=== PATIENT | male | born 1990 | race Caucasian/White ===

== ENCOUNTER 2018-12-24 20:57 | Emergency (ER) | payer OTHER ==
[~2018-12-24] VITALS: Ht 180.3 cm; Wt 76.5 kg
[2018-12-24 21:00] VITALS: Ht 180.3 cm; Wt 76.5 kg
[2018-12-24] MEDS ORDERED: KETOROLAC 30 MG INJ IM STA (22:06)
--- NOTE | 2018-12-24 22:18 | ERD ---
ER Documentation Chief Complaint Chief Complaint R ankle twisting 5 days ago HPI 28-year-old male no significant past medical history presents to the emergency department complaining of right ankle swelling and pain which is worse with walking which began 5 days ago. He states he had his right ankle crossed underneath his buttock for extended period of time which may have caused symptoms. He denies any twisting of the ankle or falls or other trauma. He used ice at home with some relief. Pain is mild at rest but worsens with walking. He took no medication for relief of symptoms. He denies any shortness of breath, fevers, chills, or other symptoms at this time. ROS All systems reviewed and are negative except as per history of present illness. Medications Home Meds Active Scripts Naproxen* (Naprosyn*) 500 Mg Tablet, 500 MG PO BID PRN for PAIN AND/OR INFLAMMATION, #30 TAB Prov:MELANIE MATHIAS PA-C 12/24/18 Doxycycline Hyclate* (Doxycycline Hyclate*) 100 Mg Tablet.dr, 100 MG PO BID for 10 Days, TAB Prov:MELANIE MATHIAS PA-C 12/24/18 Allergies Allergies: Coded Allergies: No Known Allergy (Unverified , 12/24/18) PMhx/Soc Medical and Surgical Hx: pt denies Medical Hx, pt denies Surgical Hx Hx Alcohol Use: No Hx Substance Use: No Hx Tobacco Use: No Smoking Status: Never smoker FmHx Family History: No diabetes Physical Exam Vitals Vital Signs Date Temp Pulse Resp B/P (MAP) Pulse Ox O2 O2 Flow FiO2 Time Delivery Rate 12/24/18 98.8 88 20 137/89 99 Room Air 23:27 (105) 12/24/18 97.9 71 20 151/82 96 21:00 (105) Physical Exam Const: No acute distress Head: Atraumatic Eyes: Normal Conjunctiva ENT: Normal External Ears, Nose and Mouth. Neck: Full range of motion. No meningismus. Resp: Clear to auscultation bilaterally Cardio: Regular rate and rhythm, no murmurs Skin: No petechiae or rashes Ext: There is marked swelling noted to the right lateral malleolus with associated erythema which is not circumferential. Patient is neurovascularly intact to the right foot. Range of motion of the right ankle is limited secondary to edema and pain. Unable to palpate DP pulses of the right foot secondary to edema. Neur: Awake and alert Psych: Normal Mood and Affect Results 24 hrs Laboratory Tests Test 12/24/18 22:11 Uric Acid 7.1 mg/dl Current Medications Medications Dose Sig/Jj Start Time Status Last (Trade) Ordered Route PRN Stop Time Admin Dose Reason Admin Ketorolac 30 mg ONCE STAT 12/24/18 DC 12/24/18 Tromethamine IM 22:06 22:17 (Toradol) 12/24/18 22:08 Procedures/MDM []28-year-old male presents the emergency department complaining of right ankle pain and swelling and redness for the past 5 days. X-ray of the right ankle revealed no acute abnormalities. Ultrasound the right lower extremity revealed no evidence of DVT. Uric acid level was within normal limits, not consistent with acute gout. Symptoms are likely secondary to cellulitis. Patient will be discharged home in stable condition with Barry wrap and crutches. He was advised to use rice therapy at home. He was advised to return to the department immediately for any new or worsening or concerning symptoms. He understands and agrees with plan. Patient's blood pressure was elevated (>120/80) but appears stable without evidence of hypertension emergency or urgency. The patient is to follow-up and pursue outpatient monitoring and therapy with their primary care physician within 1 week and return immediately if they have any new, worsening, or concerning symptoms. Disclaimer: Inadvertent spelling and grammatical errors are likely due to EHR/dictation software use and do not reflect on the overall quality of patient care. Also, please note that the electronic time recorded on this note does not necessarily reflect the actual time of the patient encounter. Departure Diagnosis: Primary Impression: Ankle pain Chronicity: acute Laterality: right Qualified Codes: M25.571 - Pain in right ankle and joints of right foot Condition: Fair Patient Instructions: Sprain, Ankle, With X-Ray Additional Instructions: Follow up with your PCP within the next 1-3 days for a repeat evaluation. If you require a referral to a specialist, your Primary Care Provider may be able to provide this for you. In most patient cases, a referral is not required. If you have further questions regarding this matter, please ask your Primary Care Provider. Return the the emergency department immediately if symptoms worsen or change. If you have any questions regarding medications, ask your pharmacist or us before you leave. If any adverse reactions, occur while taking your medications, discontinue the treatment and return to the emergency department immediately. If any new or worsening symptoms, uncontrolled fevers, or other unexplained symptoms occur, return to the emergency department immediately. Take your medications as directed, and complete the entire course of treatment. MELANIE MATHIAS PA-C Dec 24, 2018 22:18
[2018-12-24] MEDS ORDERED: NAPR-985 PO (23:07)
[2018-12-24] MEDS ORDERED: DOXY100T20 PO (23:07)
[2018-12-24 23:27] VITALS: BP 137/89; PULSE 88; RESP 20
== END 2018-12-24 23:28 | disposition home or self-care (01) ==
LOC: FTE 20:57
DX: M25.571 Pain in right ankle and joints of right foot (principal)
CPT/HCPCS: 73610; 84560; 93971; 96372; J1885; Z7502

== ENCOUNTER 2019-03-22 23:12 | Emergency (ER) | payer OTHER ==
[~2019-03-22] VITALS: Ht 182.9 cm; Wt 75.0 kg
[~2019-03-22 23:12] MED LIST: DOXY-214 PO; IBUP-1542 PO; NAPR-985 PO
[2019-03-22 23:19] VITALS: Ht 182.9 cm; Wt 75.0 kg
[2019-03-23 01:34] VITALS: BP 145/80; PULSE 84; RESP 19
== END 2019-03-23 01:35 | disposition home or self-care (01) ==
LOC: FTE 23:12
DX: S90.121A Contusion of right lesser toe(s) without damage to nail, initial encounter (principal); F17.210 Nicotine dependence, cigarettes, uncomplicated; W22.8XXA Striking against or struck by other objects, initial encounter; Y92.9 Unspecified place or not applicable
CPT/HCPCS: 73660; Z7502